=== PATIENT | male | born 1940 | race Caucasian/White ===

== ENCOUNTER 2018-11-03 17:00 | Emergency (ER) | payer MEDICARE, BC ==
[~2018-11-03] VITALS: Ht 180.3 cm; Wt 81.4 kg
[2018-11-03] MEDS ORDERED: LIDOcaine 2% 10ml TOPICAL JELLY (Urojet) MM ONE (19:30)
[2018-11-03] MEDS ORDERED: HYDROmorphone inj. 0.5 MG/0.5 ML DISP.SYRIN IM ONE (20:05)
--- NOTE | 2018-11-03 20:21 | NUR ---
Wound vac sponge was gingerly removed. Sponge was adhered to the lining of the wound cavity. There was no bleeding before, during, or after removal. Wound dressed with a wet to dry.
[2018-11-03] MEDS ORDERED: HYDROcodone/acetaminophen 10/325mg tab PO ONE (20:45)
[2018-11-03 21:02] VITALS: BP 144/92
== END 2018-11-03 21:05 | disposition home or self-care (01) ==
LOC: ER 17:01
DX: T81.89XA Other complications of procedures, not elsewhere classified, initial encounter (principal); Y92.89 Other specified places as the place of occurrence of the external cause
CPT/HCPCS: 96372; 99283; J1170

== ENCOUNTER 2018-11-10 10:31 | Day surgery (SDC) | payer MEDICARE, BC ==
[2018-11-10] VITALS (9 sets, daily range): BP systolic 115–135; BP diastolic 63–111
[~2018-11-10] VITALS: Ht 182.9 cm; Wt 78.0 kg
[~2018-11-10 10:31] MED LIST: ALLO300T2 PO; COU4T PO; OXYC-150 PO; VITAMINS; WARF6TAB49 PO; cefazolin/dext.iso 2gm/100 ML IV ONE; famotidine 20mg tablet PO ONE; ringers solution, lacted 1,000 ML IV SCH
[2018-11-10 11:57] LABS: BASOPHILS % (AUTO) 0.5 % (0-1); EOSINOPHILS # (AUTO) 0.2 X10'3 (0-0.9); EOSINOPHILS % (AUTO) 5.5 % (0-6); HEMATOCRIT 31.3 % (42.0-52.0); HEMOGLOBIN 10.6 g/dl (14.0-17.9); LYMPHOCYTES # (AUTO) 0.7 X10'3 (1.1-4.8); LYMPHOCYTES % (AUTO) 20.8 % (21-51); MEAN CORPUSCULAR HEMOGLOBIN 35.1 PG (27.0-31.0); MEAN CORPUSCULAR VOLUME 103.4 FL (78-98); MEAN PLATELET VOLUME 8.3 FL (7.4-10.4); MONOCYTES # (AUTO) 0.4 X10'3 (0-0.9); MONOCYTES % (AUTO) 12.3 % (2-12); NEUTROPHILS # (AUTO) 2.2 X10'3 (1.8-7.7); NEUTROPHILS % (AUTO) 60.9 % (42-75); PLATELET COUNT 145 X10'3 (140-440); RED BLOOD COUNT 3.03 X10'6 (4.70-6.10); RED CELL DISTRIBUTION WIDTH 14.3 % (11.5-14.5); WHITE BLOOD COUNT 3.6 X10'3 (4.5-11.0)
[2018-11-10 12:03] LABS: ALANINE AMINOTRANSFERASE 70 U/L (12-78); ALBUMIN 3.1 G/DL (3.4-5.0); ALBUMIN/GLOBULIN RATIO 1.1 (1.1-1.5); ALKALINE PHOSPHATASE 116 IU/L (46-116); ANION GAP 7 (8-16); ASPARTATE AMINO TRANSFERASE 43 U/L (10-37); BILIRUBIN,TOTAL 0.1 MG/DL (0.1-1.0); BLOOD UREA NITROGEN 19 MG/DL (7-18); BUN/CREATININE RATIO 19.4 (5.4-32.0); CHLORIDE 110 MMOL/L (99-107); CREATININE 0.98 MG/DL (0.60-1.10); GLUCOSE 97 MG/DL (70-104); INR 2.5 INR; PARTIAL THROMBOPLASTIN TIME 37 SECONDS (22-32); POTASSIUM 3.5 MMOL/L (3.5-5.1); PROTHROMBIN TIME 24.1 SECONDS (9.0-12.0); SODIUM 144 MMOL/L (135-145); TOTAL CARBON DIOXIDE 26.8 MMOL/L (24-32); TOTAL PROTEIN 5.8 G/DL (6.4-8.2); eGFR 74 ML/MIN
[2018-11-10] MEDS ORDERED: oxyCODONE/APAP 10/325mg tablet PO ONE (12:15)
[2018-11-10] MEDS ORDERED: BUTA1CAP48 PO (14:00)
[2018-11-10] MEDS ORDERED: VITA1TAB20 PO (14:00)
[2018-11-10] MEDS ORDERED: methylene blue (5mg/ml) 50mg/10ml ampul IV ONE (14:06)
[2018-11-10] MEDS ORDERED: ringers solution, lacted 1,000 ML IV SCH (15:04)
[2018-11-10] MEDS ORDERED: morphine 4 MG/ML inj SYRINge IV PRN ×2 (15:05)
[2018-11-10] MEDS ORDERED: proCHLORperazine 10 MG/2 ml inj IV PRN (15:05)
[2018-11-10] MEDS ORDERED: meperidine/PF 25mg/ml syringe IV PRN ×3 (15:05)
[2018-11-10] MEDS ORDERED: ondansetron/PF 4mg/2ml inj IV PRN (15:05)
[2018-11-10] MEDS ORDERED: desflurane 240ml liquid inh. IH ONE (15:22)
[2018-11-10] MEDS ORDERED: dexamethasone sod phosphate 10mg/ml inj ONE (15:22)
[2018-11-10] MEDS ORDERED: midazolam 2 mg/2 ml injection ONE (15:23)
[2018-11-10] MEDS ORDERED: fentaNYL/PF 50MCG/1 ML 2ML syringe ONE (15:23)
[2018-11-10] MEDS ORDERED: LIDOcaine 1%/PF 5ML 10 MG/ML VIAL ONE (15:23)
[2018-11-10] MEDS ORDERED: propofol inj 20 ML IV ONE (15:23)
[2018-11-10] MEDS ORDERED: BUPIVAcaine/PF 2.5mg/ml (0.25%) 10ml vial ONE (15:29)
[2018-11-10] MEDS ORDERED: ondansetron/PF 4mg/2ml inj ONE (16:24)
[2018-11-10] MEDS ORDERED: metoprolol tartrate 1mg/ml inj IV ONE (16:25)
--- NOTE | 2018-11-10 16:45 | NUR ---
Received from OR via BED, accompanied by Anesthesiologist and report given by Anesthesiolgist. PATIENT A&OX4, DENIES PAIN, V/S WNL. CSM INTACT, 20G PIV LUE, SCD ON, DRESSING TO LEFT GROIN CDI.
--- NOTE | 2018-11-10 17:45 | NUR ---
PATIENT A&OX4, DENIES PAIN, V/S WNL, NEUROVASCULAR CHECKS INTACT, 20G PIV LUE D/C, SCD OFF, DRESSING TO LEFT GROIN CDI . I HAVE REVIEWED D/C INSTRUCTIONS WITH PATIENT AND FAMILY AND THEY HAVE VERBALIZED UNDERSTANDING. PATIENT D/C HOME WITH ALL BELONGINGS AND FAMILY GAVE TRANSPORT HOME.
== END 2018-11-10 17:45 | disposition home or self-care (01) ==
LOC: PAS 10:31
PROVIDERS: ATTEND Surgery
DX: I89.8 Other specified noninfective disorders of lymphatic vessels and lymph nodes (principal); Z87.891 Personal history of nicotine dependence; Z79.899 Other long term (current) drug therapy; Z79.01 Long term (current) use of anticoagulants
CPT/HCPCS: 36415; 38999; 80053; 82948; 85025; 85610; 85730; 93005; A6449; J0690; J1100; J2001; J2250; J2270; J2405; J2704; J3010; J3490; J7120; A7000